=== PATIENT | male | born 1970 | race Hispanic/Latino ===

== ENCOUNTER 2020-09-11 09:09 | Emergency (ER) | payer OTHER ==
[~2020-09-11] VITALS: Ht 162.6 cm; Wt 83.9 kg
== END 2020-09-11 11:10 | disposition home or self-care (01) ==
LOC: ED 09:09
DX: S53.401A Unspecified sprain of right elbow, initial encounter (principal); S60.222A Contusion of left hand, initial encounter; S00.83XA Contusion of other part of head, initial encounter; Y04.8XXA Assault by other bodily force, initial encounter; Z87.891 Personal history of nicotine dependence
CPT/HCPCS: 73080; 73130; 99284-25; A9270